=== PATIENT | female | born 2000 | race Two or more races ===

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

== ENCOUNTER 2018-02-16 16:30 | Emergency (ER) | payer SELFPAY ==
[~2018-02-16] VITALS: Ht 162.6 cm; Wt 61.7 kg
[2018-02-16] MEDS ORDERED: TRIAMCINOLONE 40MG/ML 1ML VIAL IX ONE (19:15)
[2018-02-16] MEDS ORDERED: HYDROcodone-ACET 10/325MG TAB PO ONE (19:15)
[2018-02-16] MEDS ORDERED: LIDOCAINE 1% HCL (LOCAL ANESTH.) INJ 20ML MDV ID ONE (19:15)
[2018-02-16 20:12] VITALS: BP 108/62
== END 2018-02-16 20:18 | disposition home or self-care (01) ==
LOC: ER 16:32
DX: M54.2 Cervicalgia (principal); M62.838 Other muscle spasm
CPT/HCPCS: 72125; 99284; J2001; J3301